=== PATIENT | female | born 1945 | race Caucasian/White ===

== ENCOUNTER → 2016-10-18 | Outpatient (CLI) | payer MEDICARE, OTHER ==
[2016-10-18 12:13] LABS: HEMOGLOBIN 13.3 gm/dl (12.3-15.3); RED BLOOD COUNT 4.79 M/UL (4.00-5.10); WHITE BLOOD COUNT 5.2 K/UL (4.5-11.0)
== END ==
LOC: OPSV 11:18
PROVIDERS: Internal Medicine
DX: D50.0 Iron deficiency anemia secondary to blood loss (chronic) (principal); K62.5 Hemorrhage of anus and rectum; R19.7 Diarrhea, unspecified; T18.3XXA Foreign body in small intestine, initial encounter; Z90.49 Acquired absence of other specified parts of digestive tract; Z98.51 Tubal ligation status
CPT/HCPCS: 36415; 74000; 82728; 83540; 83550; 85027; 96365; J1756; J7050

== ENCOUNTER → 2020-11-18 | Outpatient (CLI) | payer MEDICARE, OTHER ==
[~2020-11-18] MED LIST: ASPIR 8181 MG PO; COD LIVER OIL1 EAC1 PO; COREG6.25 MG PO; LEVAQUIN750 MG PO; NEXIUM20 MG PO; NITROSTAT 0.40.4 MG SL; SPIRIVA RESPIMAT4 GM INH; ZANAFLEX4 MG PO; ZANTAC150 MG PO; ZOCOR20 MG PO
== END ==
LOC: US 08:30 → HEART 5 09:15
DX: E05.90 Thyrotoxicosis, unspecified without thyrotoxic crisis or storm (principal); R00.2 Palpitations; R94.31 Abnormal electrocardiogram [ECG] [EKG]; E78.5 Hyperlipidemia, unspecified; I10 Essential (primary) hypertension; E04.1 Nontoxic single thyroid nodule
CPT/HCPCS: 76536; 78452; A9502; J2785

== ENCOUNTER → 2021-08-01 | Outpatient (CLI) | payer MEDICARE, OTHER | LOC: KOH-I 10:26 | DX: F17.210 Nicotine dependence, cigarettes, uncomplicated (principal); R91.1 Solitary pulmonary nodule | CPT/HCPCS: 71271 ==